=== PATIENT | female | born 1980 | race Two or more races ===

== ENCOUNTER → 2016-10-07 | Outpatient (CLI) | payer MEDICAID ==
--- NOTE | 2016-10-07 11:20 | CT ---
CT Chest Without Contrast 0929 hours Indication: Asthma. Followup pulmonary nodules. (J 45.909, R 91.8). Technique: Spiral images were obtained through the chest. Images were reviewed in multiple planes . Dose reduction techniques were utilized. Comparison: October 27, 2015. Findings: Lung and large airways: Pulmonary nodules once again identified as follows: Left lower lobe posterior laterally, series 3, image 116, 3 x 2 mm (previously 4 x 3 mm). Benign-appearing pleural-based nodule right middle lobe anterolaterally, image 104 Benign-appearing pleural-based nodule left lower lobe posterior laterally, image 148 Benign-appearing pleural-based nodule left lower lobe posterior laterally, image 160 Ill-defined density previously identified left upper lobe anterolaterally has resolved. This probably represented focal infiltrate/infectious etiology. No new pulmonary nodules are identified, consolida tion, or effusion. Bronchi: No significant bronchial wall thickening. Pleura: No significant abnormality. Vessels: Normal. The thoracic aorta has a normal contour. There is no significant arteriosclerotic c hange. Heart and pericardium: Normal. Mediastinum and freda: No mass or lymphadenopathy. Chest wall and lower neck: Normal. Limited upper abdomen: No significant abnormality. Skeletal system: Vertebral body heights are well-maintained. There are no lytic or sclerotic osseous lesions. Impression: 1. Benign-appearing 3 mm nodule left lower lobe has decreased in size with benign-appearing pleural-b ased nodules stable or smaller when compared to the prior study and resolution of focal infiltrate le ft upper lobe. No additional imaging followup is felt to be necessary. 2. The previously described right superior mediastinal density on chest x-ray studies actually appear s to correspond with mild prominence of the manubrium of the sternum.
== END ==
LOC: CIMAGING 09:23
PROVIDERS: ATTEND Internal Medicine Pulmonary Disease
DX: R91.8 Other nonspecific abnormal finding of lung field (principal); J45.909 Unspecified asthma, uncomplicated
CPT/HCPCS: 71250-PO

== ENCOUNTER → 2016-10-23 | Outpatient (CLI) | payer MEDICAID ==
--- NOTE | 2016-10-23 16:38 | DX ---
AP Supine Abdomen Reason for examination: Follow up kidney stone; history of stone documented on outside study from Jun. The previous study is not available for comparison. Findings: A small calcific opacity projects over the lower pole of the right kidney and could represe nt either nephrolithiasis or could be material contained in overlying bowel. No other calcifications are seen projecting over the KUB system. There is elevation of the right hemidiaphragm. IMPRESSION: Possible right nephrolithiasis. As clinically directed, comparison to previous studies co uld be obtained if that would be of value.
== END ==
LOC: CIMAGING 08:20
PROVIDERS: ATTEND Specialist
DX: N28.89 Other specified disorders of kidney and ureter (principal); R35.0 Frequency of micturition
CPT/HCPCS: 74000-PO; 80048-PO; 85025-PO

== ENCOUNTER → 2016-12-31 | Outpatient (CLI) | payer MEDICAID | LOC: CIMAGING 08:08 | PROVIDERS: ATTEND Specialist | DX: Z87.442 Personal history of urinary calculi (principal) | CPT/HCPCS: 74000-PO ==

== ENCOUNTER → 2018-01-15 | Outpatient (CLI) | payer MEDICAID | LOC: CIMAGING 11:28 | PROVIDERS: ATTEND Family Medicine | DX: R10.9 Unspecified abdominal pain (principal); R31.9 Hematuria, unspecified; Z87.442 Personal history of urinary calculi | CPT/HCPCS: 74018-PO ==

== ENCOUNTER → 2018-01-23 | Outpatient (CLI) | payer MEDICAID | LOC: CIMAGING 08:14 | PROVIDERS: ATTEND Family Medicine | DX: R10.9 Unspecified abdominal pain (principal); R31.9 Hematuria, unspecified; Z87.442 Personal history of urinary calculi | CPT/HCPCS: 74176-PO ==